=== PATIENT | male | born 1990 | race Caucasian/White ===

== ENCOUNTER 2016-12-16 16:22 | Emergency (ER) | payer OTHER ==
[~2016-12-16] VITALS: Ht 182.9 cm; Wt 64.0 kg
[~2016-12-16 16:22] MED LIST: HYDR-4246 PO; HYDR25CA PO
[2016-12-16 16:25] VITALS: TEMP 99.4; Ht 182.9 cm; Wt 64.0 kg
--- OUTSIDE RECORDS SUMMARY | 2016-12-16 16:26 | XMS REPORT | Continuity of Care Document ---
Author Author [facility] Organization [facility] Address Unknown Phone Unavailable Support Name Relationship Address Phone JEZ MERIDA MD Caregiver [address] [address] Unavailable JUSTINA BARRAZA Next Of Kin [address] [place], [place] [id number] Insurance Providers Guarantor Marck Maurice Address [address] [place] [address] Email DENIED 16 Payer Other A Insurance Policy Number [id number] Subscriber's Name LauraCarlton goldbergshanedamien Relationship 18 Self Group Number [id number] Advance Directives Directive Response Recorded Date/Time Advanced Directives Type None 10/29/16 10:02pm Chief Complaint and Reason for Visit Chief Complaint Upper Extremity Injury Reason for Visit Fracture of fifth metacarpal bone of right hand with malunion Problems Past Problems Medical Problem Onset Date Fracture of fifth metacarpal bone of right hand with malunion Unknown Insect bite Unknown Intoxication by drug Unknown Medications Current Home Medications Medication Dose Units Route Directions Days Qty Instructions Start Date Hydrocodone/Acetaminophen ([place] 5-325 Tablet) 5-325 Tablet 1 Tab Oral Four Times Daily as needed for Pain 30 10/29/16 Hydroxyzine Pamoate (Vistaril) 25 Mg Capsule 1 Cap Oral Four Times Daily 20 Capsule 07/22/16 Social History Social History Problem Response Recorded Date/Time Onset Date Status Chewing Tobacco Status No 10/29/2016 11:00pm Not Applicable Not Applicable Hx Substance Use Y K2 10/29/2016 11:00pm Not Applicable Not Applicable Hx Alcohol Use Yes 10/29/2016 11:00pm Not Applicable Not Applicable Tobacco Usage none 04/10/2016 11:18pm Not Applicable Not Applicable Query Response Start Date Stop Date Smoking Status Current every day smoker Hospital Discharge Instructions No hospital discharge instructions. Plan of Care Discharge Date 10/29/16 11:53pm Disposition 01 DISCHARGED HOME, SELF-CARE Condition at Discharge Improved Instructions/Education Provided Boxer Fracture (ED) Forms Provided Return to Work/School Permit Prescriptions See Medication Section Referrals XIAO JEFFERSON MD Address: [address] [place] [phone] JOSEFA SHEPHERD MD Address: [address] [place] [phone] Additional Instructions/Education Keep splint in place, clean and dry. Call [facility] tomorrow to arrange out patient follow up appointment. Do not take ANY alcohol or drugs while using prescription medications. [place] 5mg 1 every 6 hours for pain as needed. May use Tylenol up to 1000mg instead of norco for less severe pain. Care Plan and Goals Physician Care Plan Problem: Right 5th Metacarpal neck Fx - 2 weeks old with malunion Goal: Follow up with primary care provider Instructions: Take medications and follow care plan as discussed/written Keep splint in place, clean and dry. Call [facility] tomorrow to arrange out patient follow up appointment. Do not take ANY alcohol or drugs while using prescription medications. [place] 5mg 1 every 6 hours for pain as needed. May use Tylenol up to 1000mg instead of norco for less severe pain. Functional Status No functional status results. Allergies, Adverse Reactions, Alerts No known allergies. Immunizations No immunization records. Vital Signs Acute Vital Signs Vital Response Date/Time Temperature (Fahrenheit) 98.4 deg F (96.8 - 99.1) 10/29/2016 10:02pm Temperature (Calculated Celsius) 36.33976 degrees C (36.0 - 37.3) 10/29/2016 10:02pm Pulse Rate (adult) 66 bpm (60 - 100) 10/29/2016 11:53pm Respiratory Rate 12 breaths/min (10 - 20) 10/29/2016 11:53pm O2 Sat by Pulse Oximetry 100 % (90 - 100) 10/29/2016 11:53pm Blood Pressure 108/56 mm Hg 10/29/2016 11:53pm Height (Feet) 6 feet 10/29/2016 10:02pm Height (Inches) 1.00 inches 10/29/2016 10:02pm Weight (Kilograms) 73.900 kg 10/29/2016 10:02pm Body Mass Index (BMI) 21.0 10/29/2016 10:02pm Results No known relevant diagnostic tests, laboratory data and/or discharge summary. Procedures No known history of procedures. Encounters Encounter Location Arrival/Admit Date Discharge/Depart Date Attending Provider Departed Emergency Room [facility] 10/29/16 9:53pm 10/29/16 11: 53pm JEZ MERIDA MD Recent Diagnosis
--- OUTSIDE RECORDS SUMMARY | 2016-12-16 16:27 | XMS REPORT | Continuity of Care Document ---
Author Author [facility] Organization [facility] Address Unknown Phone Unavailable Allergies Active Description Code Type Severity Reaction Onset Reported/Identified Relationship to Patient Clinical Status Yes No Known Allergies No Known Allergies Drug Allergy Unknown N/A 05/15/2014 Medications Problems Procedures Results Test Result Range CBC W/DIFF - 05/15/14 14:15 GRANULOCYTE # 12.5 k/cumm 2.0-9.0 GRANULOCYTE % 77 % 50-75 LYMPHOCYTE # 2.8 k/cumm 1.0-4.0 LYMPHOCYTE % 17 % 20-30 MEAN CELL HGB 28.4 pg 27.0-33.0 MEAN CELL HGB CONCENTRATION 34.6 g/dL 32.0-37.0 MEAN CELL VOLUME 82.1 fl 80.0-100.0 MONOCYTE # 0.9 k/cumm 0.1-1.0 MONOCYTE % 6 % 4-6 RED BLOOD CELL 6.09 m/cumm 4.00-6.00 RED CELL DISTRIBUTION WIDTH 15.0 % 11.0- 15.6 WHITE BLOOD CELL 16.3 k/cumm 5.0-10.0 HEMOGLOBIN 17.3 gm/dL 14.0-18.0 HEMATOCRIT 50.0 % 40.0-54.0 PLATELET COUNT 326 k/cumm 150-450 METABOLIC PANEL, COMPREHN - 05/15/14 14:15 POTASSIUM 3.0 mmol/L 3.5-5.3 EST GFR (MDRD) > 60 mL/min > 59 ANION GAP 15 mmol/L 5-15 EST CrCl (CG) > 60 mL/min > 59 GLUCOSE 137 mg/dL 70-99 CALCIUM 10.0 mg/dL 8.5-10.1 BLOOD UREA NITROGEN 11 mg/dL 7-20 CREATININE 1.3 mg/dL 0.8-1.3 SODIUM 144 mmol/L 135-148 CHLORIDE 102 mmol/L 98-110 AST/SGOT 13 Units/L 10-37 ALT/SGPT 38 Units/L < 66 CARBON DIOXIDE 27 mmol/L 21-32 TOTAL PROTEIN 8.5 gm/dL 6.4-8.2 ALBUMIN 4.3 gm/dL 3.4-5.0 BILI TOTAL 0.6 mg/dL 0.0-1.0 ALKALINE PHOSPHATASE TOTAL 70 IU/L 45- 117 LIPASE - 05/15/14 14:15 LIPASE 112 Units/L 73-393 METABOLIC PANEL, BASIC - 07/28/14 16:10 POTASSIUM 2.8 mmol/L 3.5-5.3 EST GFR (MDRD) > 60 mL/min > 59 ANION GAP 16 mmol/L 5-15 EST CrCl (CG) 46 mL/min > 59 GLUCOSE 125 mg/dL 70-99 CALCIUM 10.3 mg/dL 8.5-10.1 BLOOD UREA NITROGEN 15 mg/dL 7-20 CREATININE 1.2 mg/dL 0.8-1.3 SODIUM 139 mmol/L 135-148 CHLORIDE 100 mmol/L 98-110 CARBON DIOXIDE 23 mmol/L 21-32 Encounters ACCT No. Visit Date/Time Discharge Status Pt. Type Provider Facility Loc./Unit Complaint [id number] 07/28/2014 15:34:00 2013 17:25:00 DIS Emergency Siddharth HILLMAN, [facility] W.EDW [id number] 05/15/2014 14:05:00 2013 15:44:00 DIS Emergency Evangelist HILLMAN, [facility] W.EDW
--- OUTSIDE RECORDS SUMMARY | 2016-12-16 16:43 | XMS REPORT | Continuity of Care Document ---
Author Author [facility] Organization [facility] Address Unknown Phone Unavailable Allergies Active Description [...] Status Pt. Type Provider Facility Loc./Unit Complaint [id number] 07/28/2014 15:34:00 2013 17:25:00 DIS Emergency Siddharth HILLMAN, [facility] W.EDW [id number] 05/15/2014 14:05:00 2013 15:44:00 DIS Emergency Evangelist HILLMAN, [facility] W.EDW
[2016-12-16] MEDS ORDERED: ONDANSETRON 4mg/2ml INJECTION IV ONE (16:45)
[2016-12-16] MEDS ORDERED: NORMAL SALINE 1,000 ML IV ONE (16:45)
--- NOTE | 2016-12-16 16:45 | ERPDOC ---
Departure Disposition Decision Date: Dec 16, 2016 Disposition Decision Time: 17:32 (KATJA SALEH APRN) Disposition: 01 DISCHARGED HOME, SELF-CARE Impression Impression (KATJA SALEH APRN) Impression: Primary Impression: Gastroenteritis Severity: Moderate (KATJA SALEH APRN) Condition: Stable Seen By: Mid-level only (KATJA SALEH APRN) Patient Instructions: Gastroenteritis (ED) Problems/Meds/Labs Reviewed?: Yes Medications reviewed and manag: Yes (KATJA SALEH APRN) Additional Instructions: Use the Zofran as needed for nausea. Take small frequent sips of clear liquids at home to maintain hydration. If you are not improving at all then please return to ER or follow up with your primary care provider in the next 1-2 days. Follow up care ordered?: Yes Mental Status: Alert, Oriented (KATJA SALEH APRN) Scripts Ondansetron (Zofran Odt) 4 Mg Tab.rapdis 4 MG PO Q8HR, #10 TAB 0 Refills Orally disintegrating tablet Prov: KATJA SALEH APRN 12/16/16 HPI - Abdominal Pain General Chief Complaint: Nausea,Vomiting,Diarrhea Stated Complaint: VOMITING/DRY HEAVES Time Seen by Provider: 16:34 Source: patient History/Exam Limitations: no limitations (KATJA SALEH APRN) Time Seen by Provider: 16:34 (MORRIS DELEON MD) HPI - Abdominal Pain Initial Comments He had onset of abdominal cramping, vomiting, and diarrhea this morning. Has had a low grade temp as well. Has not taken anything for this so far today. Feels like he is also having muscle cramping all over. Has vomited several times today. Occurred At: home Onset: Rapid Duration: 4-6 hrs Quality: cramping Location: generalized abdomen Radiation: no radiation Activities at Onset: none Associated Symptoms: fever/chills, nausea/vomiting, DENIES: back pain, chest pain, diaphoresis, fatigue, headache, heartburn, rash, shortness of breath, swelling/mass in abdomen, syncope, weakness Hx of Similar Symptoms: No (KATJA SALEH APRN) Allergies: Coded Allergies: No Known Allergies (Unverified , 12/16/16) Past History Past Medical History Psychological: depression, drug abuse (NOLD,KATJA N TRANSFORMATION ANALYST) Surgical History Denies Surgeries (NOLD,KATJA N TRANSFORMATION ANALYST) Social History Substance Use Type: does not use Alcohol Intake: none (NOLD,KATJA N TRANSFORMATION ANALYST) Review of Systems Constitutional Constitutional: fatigue, fever, weakness, DENIES: chills, dizziness (NOLD, KATJA N TRANSFORMATION ANALYST) Cardiovascular Cardiac: DENIES: chest pain, orthopnea Rhythm/Rate: DENIES: irregular beat, palpitations (NOLD,KATJA N TRANSFORMATION ANALYST) Pulmonary Respiratory: DENIES: cough, dyspnea, sputum, tachypnea (NOLD,KATJA N TRANSFORMATION ANALYST) GI Upper Abdomen: nausea, pain, vomiting Lower Abdomen: diarrhea, pain, DENIES: constipation (NOLD,KATJA N TRANSFORMATION ANALYST) Integumentary Skin: DENIES: rash (NOLD,KATJA N TRANSFORMATION ANALYST) Neurological General: DENIES: headache, numbness, tingling, weakness (NOLD,KATJA N TRANSFORMATION ANALYST) Physical Exam General General Nourishment: well nourished, well developed, appears stated age, no acute distress, adult General Body Habitus: well groomed (NOLD,KATJA N TRANSFORMATION ANALYST) Vitals and Pain First Documented Vital Signs Date Time Temp Pulse Resp B/P Pulse Ox O2 Delivery O2 Flow Rate FiO2 12/16/16 16:25 99.4 103 24 131/84 99 Room Air (MORRIS DELEON MD) Vitals and Pain Weight: Kilograms: 64.000 Height (feet): 6 Height (inches): 0 Triage Pain Scale: (NOLAXMI,KATJA N TRANSFORMATION ANALYST) RN VS reviewed by Provider: Yes (NOPRATTESA N TRANSFORMATION ANALYST) Normal Exams: Neck: Full range of motion, without adenopathy, JVD, bruits or thyromegaly Chest/Resp: Clear all giraldo, with good airflow, and symmetry bilaterally CV: Regular rate and rhythm, without murmur or gallop, Pulses 2+ all extremities, capillary refill, <2 seconds all ext., no pedal edema noted Abdomen: Bowel sounds positive, non-distended, no hepatosplenomegaly, masses or bruits noted Lymphatic: No lymphadenopathy, or lymphedema noted Integumentary: No rashes, hives, or bruising noted Neurologic: Patient is alert, and oriented Psychiatric: Patient exhibits, appropriate attention, emotion and affect (NOLD,KATJA N TRANSFORMATION ANALYST) Abdomen Palpation: FOUND: soft, tender (mild TTP in all quadrants) (SONNYLD,KATJA N TRANSFORMATION ANALYST) Differential Diagnoses Considering: Dehydration, Food Poisoning, Gastroenteritis, Hyponatremia, Hypokalemia, Hypoglycemia, Pancreatitis (NOLD,KATJA N TRANSFORMATION ANALYST) Progress Results/Orders Orders Procedure Category Date Status Time Cbc W/Auto LAB 12/16/16 Complete Diff-Reflex Manual Cmp - Comprehensive LAB 12/16/16 Complete Metabolic Lipase LAB 12/16/16 Complete Iv Lock (Ed Only) EDM 12/16/16 Transmitted 16:40 Normal Saline (Normal PHA 12/16/16 Complete Saline Iv) 16:45 Ondansetron Inj PHA 12/16/16 Complete (Zofran) 16:45 Prochlorperazine PHA 12/16/16 Complete (Compazine) 17:45 (MORRIS DELEON MD) Lab Results Laboratory Tests Test 12/16/16 16:50 White Blood Count 8.6T/MM3 Red Blood Count 5.32M/MM3 Hemoglobin 15.3GM/DL Hematocrit 44.9% Mean Corpuscular Volume 84.4UM3 Mean Corpuscular Hemoglobin 28.8UUG Mean Corpuscular Hemoglobin Concent 34.1GM/DL RDW Standard Deviation 42.6FL Platelet Count 292T/MM3 Mean Platelet Volume 10.3UM3 Immature Granulocyte % (Auto) 0.1% Neutrophils (%) (Auto) 63.5% Lymphocytes (%) (Auto) 29.9% Monocytes (%) (Auto) 5.8% Eosinophils (%) (Auto) 0.6% Basophils (%) (Auto) 0.1% Absolute Immature Granulocyte (auto 0.01T/MM3 Absolute Neutrophils (auto) 5.4T/MM3 Absolute Lymphocytes (auto) 2.6T/MM3 Absolute Monocytes (auto) 0.5T/MM3 Absolute Eosinophils (auto) 0.1T/MM3 Absolute Basophils (auto) 0.0T/MM3 Turbidity < 20 Sodium Level 147MEQ/L Potassium Level 3.8MEQ/L Chloride Level 104MEQ/L Carbon Dioxide Level 26MEQ/L Anion Gap 17MEQ/L Blood Urea Nitrogen 23.0MG/DL Creatinine 1.0MG/DL Glomerular Filtration Rate Calc 89 BUN/Creatinine Ratio 23RATIO Glucose Level 99MG/DL Calculated Osmolality 286MOSM/KG Calcium Level 10.4MG/DL Total Bilirubin 1.20MG/DL Icterus Index < 2 Aspartate Amino Transf (AST/SGOT) 18U/L Alanine Aminotransferase (ALT/SGPT) 21U/L Alkaline Phosphatase 55U/L Total Protein 8.7G/DL Albumin 5.1G/DL Globulin 3.6G/DL Albumin/Globulin Ratio 1.4RATIO Lipase 79U/L Chemistry Specimen Hemolysis < 15 (MORRIS DELEON MD) Medications Current ED Medications Sodium Chloride (Normal Saline IV) 1,000 ml @ 1,000 mls/hr Q1H ONCE IV Last administered on 12/16/16 16:57; Start 12/16/16 at 16:45; Stop 12/16/16 at 17:44 ; Status DC Ondansetron HCl (Zofran) 4 mg O ONCE IV Last administered on 12/16/16 16:57; Start 12/16/16 at 16:45; Stop 12/16/16 at 16:46; Status DC Prochlorperazine Edisylate (Compazine) 10 mg O ONCE IV Last administered on 17:37; Start 12/16/16 at 17:45; Stop 12/16/16 at 17:46; Status DC (MORRIS DELEON MD) Progress Progress CBC, CMP, and lipase today are normal. He does still feel a little nauseated but otherwise is feeling better. Will go ahead and let him go home with a Rx for Zofran today. Follow up with his PCP if not improving. (KATJA SALEH APRN) Progress Patient's history and exam reviewed as well as labs. Agree with care given in ER and follow up plan as outlined (MORRIS DELEON MD) KATJA SALEH APRN Dec 16, 2016 16:45 MORRIS DELEON MD Dec 16, 2016 18:05
[2016-12-16 16:58] LABS: BASOPHILS % (AUTO) 0.1 % (0-2); EOSINOPHILS # (AUTO) 0.1 T/MM3 (0-0.5); EOSINOPHILS % (AUTO) 0.6 % (0-4); HCT - HEMATOCRIT 44.9 % (41-53); HGB - HEMOGLOBIN 15.3 GM/DL (13.5-17.5); IMMATURE GRANULOCYTE # (AUTO) 0.01 T/MM3 (0.00-0.03); IMMATURE GRANULOCYTE % (AUTO) 0.1 % (0.0-0.5); LYMPHOCYTES # (AUTO) 2.6 T/MM3 (1-4.8); LYMPHOCYTES % (AUTO) 29.9 % (23-45); MEAN CORPUSCULAR HGB 28.8 UUG (26-34); MEAN CORPUSCULAR HGB CONC(MCHC 34.1 GM/DL (31-37); MEAN CORPUSCULAR VOLUME 84.4 UM3 (80-100); MEAN PLATELET VOLUME 10.3 UM3 (9.4-12.4); MONOCYTES # (AUTO) 0.5 T/MM3 (0-0.8); MONOCYTES % (AUTO) 5.8 % (0-9.0); NEUTROPHILS #(AUTO)-ABSOLUTE 5.4 T/MM3 (1.8-7.7); NEUTROPHILS % (AUTO) 63.5 % (33-66); RED BLOOD COUNT 5.32 M/MM3 (4.50-5.90); WBC - WHITE BLOOD COUNT 8.6 T/MM3 (4.5-11.0)
[2016-12-16 17:04] LABS: ALBUMIN 5.1 G/DL (3.5-5.0); ALBUMIN/GLOBULIN RATIO 1.4 RATIO (1.1-2.2); ALKALINE PHOSPHATASE 55 U/L (38-126); ALT (SGPT) 21 U/L (21-72); ANION GAP 17 MEQ/L (5-15); AST (SGOT) 18 U/L (17-59); BUN/CREATININE RATIO 23 RATIO (6-26); CALCIUM 10.4 MG/DL (8.4-10.2); CHLORIDE 104 MEQ/L (98-107); CO2 - CARBON DIOXIDE 26 MEQ/L (22-30); GLOMERULAR FILTRATION RATE 89; GLUCOSE 99 MG/DL (75-110); LIPASE 79 U/L (23-300); POTASSIUM 3.8 MEQ/L (3.6-5); SODIUM 147 MEQ/L (134-144); TOTAL PROTEIN 8.7 G/DL (6.3-8.2)
--- NOTE | 2016-12-16 17:33 | NUR ---
DIANA OLSON IN
[2016-12-16] MEDS ORDERED: ONDA4TAB7 PO (17:35)
[2016-12-16] MEDS ORDERED: PROCHLORPERAZINE 10mg/2ml INJECTION IV ONE (17:45)
--- NOTE | 2016-12-16 18:02 | NUR ---
STATUS PT SAYS HE IS FEELING MUCH BETTER. NO LONGER STRESSED & ANXIOUS
[2016-12-16 18:15] VITALS: BP 106/55; PULSE 72; RESP 18; O2SAT 97
--- NOTE | 2016-12-16 18:15 | NUR ---
DISCHARGE PT GIVEN INSTRUCTIONS FOR CONT CARE GASTROENTERITIS W/ RX X1 OF ZOFRAN W/ WORK NOTE, PT VERBALIZED UNDERSTANDING AND SIGNED FORM, PT LEFT ER ALERT, AMBULATORY, VS CHARTED W/ PAIN RELIEVED TO 1/10 W/ RELIEF OF NAUSEA AND NO ACUTE DISTRESS.
== END 2016-12-16 18:15 | disposition home or self-care (01) ==
LOC: ED 16:22
DX: K52.9 Noninfective gastroenteritis and colitis, unspecified (principal)
CPT/HCPCS: 80053; 83690; 85025; 96361; 96374; 96375; 99284; J0780; J2405; J7030

== ENCOUNTER 2016-12-17 14:38 | Emergency (ER) | payer OTHER ==
[~2016-12-17] VITALS: Ht 182.9 cm; Wt 64.5 kg
[~2016-12-17 14:38] MED LIST changes: +ONDA4TAB7 PO
[2016-12-17 14:40] VITALS: TEMP 98.7; Ht 182.9 cm; Wt 64.5 kg
--- OUTSIDE RECORDS SUMMARY | 2016-12-17 14:43 | XMS REPORT | Continuity of Care Document ---
Author Author [facility] Organization [facility] Address Unknown Phone Unavailable Support Name Relationship Address Phone MORRIS DELEON MD Caregiver [address] [place] [address] [place] [address] Unavailable JUSTINA BARRAZA Next Of Kin [address] [place], [place] [phone] Insurance Providers Guarantor Marck Maurice Address [address] [place] [address] Email DENIED 16 Payer Other A Insurance Policy Number [id number] Subscriber's Name Marck Maurice Relationship 18 Self Group Number [id number] Chief Complaint and Reason for Visit Chief Complaint Nausea,Vomiting,Diarrhea Reason for Visit Gastroenteritis Problems Past Problems Medical Problem Onset Date Fracture of fifth metacarpal bone of right hand with malunion Unknown Gastroenteritis Unknown Insect bite Unknown Intoxication by drug Unknown Medications Current Home Medications Medication Dose Units Route Directions Days Qty Instructions Start Date None Daily 12/16/16 Ondansetron (Zofran Odt) 4 Mg Tab.rapdis 4 Mg Oral Q8h @ 0100/0900/1700 10 Tablet Orally disintegrating tablet 12/16/16 Social History Social History Problem Response Recorded Date/Time Onset Date Status Hx Substance Use Y K2 12/16/2016 4:25pm Not Applicable Not Applicable Hx Alcohol Use No 12/16/2016 4:25pm Not Applicable Not Applicable Tobacco Usage none 04/10/2016 11:18pm Not Applicable Not Applicable Query Response Start Date Stop Date Smoking Status Current every day smoker Hospital Discharge Instructions No hospital discharge instructions. Plan of Care Discharge Date 12/16/16 6:15pm Disposition 01 DISCHARGED HOME, SELF-CARE Condition at Discharge Stable Instructions/Education Provided Gastroenteritis (ED) Prescriptions See Medication Section Additional Instructions/Education Use the Zofran as needed for nausea. Take small frequent sips of clear liquids at home to maintain hydration. If you are not improving at all then please return to ER or follow up with your primary care provider in the next 1-2 days. Care Plan and Goals Physician Care Plan Problem:Gastroenteritis Goal: Follow up with primary care provider Instructions: Take medications and follow care plan as discussed/written Functional Status No functional status results. Allergies, Adverse Reactions, Alerts No known allergies. Immunizations Query Response on File Recorded Date/Time Influenza Vaccine Hx NONE 12/16/16 4:25pm Vital Signs Acute Vital Signs Vital Response Date/Time Temperature (Fahrenheit) 99.4 deg F (96.8 - 99.1) 12/16/2016 4:25pm Temperature (Calculated Celsius) 37.08936 degrees C (36.0 - 37.3) 12/16/2016 4:25pm Pulse Rate (adult) 72 bpm (60 - 100) 12/16/2016 6:15pm Respiratory Rate 18 breaths/min (10 - 20) 12/16/2016 6:15pm O2 Sat by Pulse Oximetry 97 % (90 - 100) 12/16/2016 6:15pm Blood Pressure 106/55 mm Hg 12/16/2016 6:15pm Height (Feet) 6 feet 12/16/2016 4:25pm Height (Inches) 0 inches 12/16/2016 4:25pm Weight (Kilograms) 64.000 kg 12/16/2016 4:25pm Body Mass Index (BMI) 19.0 12/16/2016 4:25pm Results Laboratory Results Test Name Result Units Flags Reference Collection Date/Time Result Date/ Time Comments White Blood Count 8.6 T/MM3 4.5-11.0 12/16/2016 4:50pm 12/16/2016 4: 58pm Red Blood Count 5.32 M/MM3 4.50-5.90 12/16/2016 4:50pm 12/16/2016 4: 58pm Hemoglobin 15.3 GM/DL 13.5-17.5 12/16/2016 4:50pm 12/16/2016 4:58pm Hematocrit 44.9 % 41-53 12/16/2016 4:50pm 12/16/2016 4:58pm Mean Corpuscular Volume 84.4 UM3 80-100 12/16/2016 4:50pm 12/16/2016 4: 58pm Mean Corpuscular Hemoglobin 28.8 UUG 26-34 12/16/2016 4:50pm 2016 4:58pm Mean Corpuscular Hemoglobin Concent 34.1 GM/DL 31-37 12/16/2016 4:50pm 12/16/2016 4:58pm RDW Standard Deviation 42.6 FL 36.9-50.2 12/16/2016 4:50pm 12/16/2016 4 :58pm Platelet Count 292 T/MM3 130-400 12/16/2016 4:50pm 12/16/2016 4:58pm Mean Platelet Volume 10.3 UM3 9.4-12.4 12/16/2016 4:50pm 12/16/2016 4: 58pm Neutrophils (%) (Auto) 63.5 % 33-66 12/16/2016 4:50pm 12/16/2016 4: 58pm Lymphocytes (%) (Auto) 29.9 % 23-45 12/16/2016 4:50pm 12/16/2016 4: 58pm Monocytes (%) (Auto) 5.8 % 0-9.0 12/16/2016 4:50pm 12/16/2016 4:58pm Eosinophils (%) (Auto) 0.6 % 0-4 12/16/2016 4:50pm 12/16/2016 4:58pm Basophils (%) (Auto) 0.1 % 0-2 12/16/2016 4:50pm 12/16/2016 4:58pm Immature Granulocyte % (Auto) 0.1 % 0.0-0.5 12/16/2016 4:50pm 2016 4:58pm Absolute Neutrophils (auto) 5.4 T/MM3 1.8-7.7 12/16/2016 4:50pm 2016 4:58pm Absolute Lymphocytes (auto) 2.6 T/MM3 1-4.8 12/16/2016 4:50pm 2016 4:58pm Absolute Monocytes (auto) 0.5 T/MM3 0-0.8 12/16/2016 4:50pm 12/16/2016 4:58pm Absolute Eosinophils (auto) 0.1 T/MM3 0-0.5 12/16/2016 4:50pm 2016 4:58pm Absolute Basophils (auto) 0.0 T/MM3 0-0.2 12/16/2016 4:50pm 12/16/2016 4:58pm Absolute Immature Granulocyte (auto 0.01 T/MM3 0.00-0.03 12/16/2016 4: 50pm 12/16/2016 4:58pm Icterus Index < 2 0-7 12/16/2016 4:50pm 12/16/2016 5:04pm Chemistry Specimen Hemolysis < 15 0-25 12/16/2016 4:50pm 12/16/2016 5 :04pm 0-25: Specimen Exhibited No Hemolysis. Turbidity < 20 0-20 12/16/2016 4:50pm 12/16/2016 5:04pm Sodium Level 147 MEQ/L H 134-144 12/16/2016 4:50pm 12/16/2016 5:04pm Potassium Level 3.8 MEQ/L 3.6-5 12/16/2016 4:50pm 12/16/2016 5:04pm Chloride Level 104 MEQ/L 98-107 12/16/2016 4:50pm 12/16/2016 5:04pm Carbon Dioxide Level 26 MEQ/L 22-30 12/16/2016 4:50pm 12/16/2016 5: 04pm Anion Gap 17 MEQ/L H 5-15 12/16/2016 4:50pm 12/16/2016 5:04pm Blood Urea Nitrogen 23.0 MG/DL H 9-20 12/16/2016 4:50pm 12/16/2016 5: 04pm Creatinine 1.0 MG/DL 0.8-1.5 12/16/2016 4:50pm 12/16/2016 5:04pm BUN/Creatinine Ratio 23 RATIO 6-26 12/16/2016 4:50pm 12/16/2016 5:04pm Glomerular Filtration Rate Calc 89 12/16/2016 4:50pm 12/16/2016 5: 04pm Glucose Level 99 MG/DL 75-110 12/16/2016 4:50pm 12/16/2016 5:04pm Calculated Osmolality 286 MOSM/KG H 261-280 12/16/2016 4:50pm 2016 5:04pm Calcium Level 10.4 MG/DL H 8.4-10.2 12/16/2016 4:50pm 12/16/2016 5:04pm Total Bilirubin 1.20 MG/DL 0.20-1.30 12/16/2016 4:50pm 12/16/2016 5: 04pm Alkaline Phosphatase 55 U/L 38-126 12/16/2016 4:50pm 12/16/2016 5:04pm Total Protein 8.7 G/DL H 6.3-8.2 12/16/2016 4:50pm 12/16/2016 5:04pm Albumin 5.1 G/DL H 3.5-5.0 12/16/2016 4:50pm 12/16/2016 5:04pm Globulin 3.6 G/DL 2.4-3.6 12/16/2016 4:50pm 12/16/2016 5:04pm Albumin/Globulin Ratio 1.4 RATIO 1.1-2.2 12/16/2016 4:50pm 12/16/2016 5 :04pm Aspartate Amino Transf (AST/SGOT) 18 U/L 17-59 12/16/2016 4:50pm 2016 5:04pm Alanine Aminotransferase (ALT/SGPT) 21 U/L 21-72 12/16/2016 4:50pm 5:04pm Lipase 79 U/L 23-300 12/16/2016 4:50pm 12/16/2016 5:04pm Procedures Procedure Status Date Provider(s) Treat metacarpal fracture Completed 10/29/16 JEZ MERIDA MD X-ray exam of hand Completed 10/29/16 Emergency dept visit Completed 10/29/16 Encounters Encounter Location Arrival/Admit Date Discharge/Depart Date Attending Provider Departed Emergency Room [facility] 12/16/16 4:22pm 12/16/16 6: 15pm MORRIS DELEON MD Departed Emergency Room [facility] 10/29/16 9:53pm 10/29/16 11: 53pm JEZ MERIDA MD Recent Diagnosis
--- OUTSIDE RECORDS SUMMARY | 2016-12-17 14:43 | XMS REPORT | Continuity of Care Document ---
Author Author [facility] Organization [facility] Address Unknown Phone Unavailable Allergies Active Description [...] Status Pt. Type Provider Facility Loc./Unit Complaint [id number] 07/28/2014 15:34:00 2013 17:25:00 DIS Emergency Siddharth HILLMAN, [facility] W.EDW [id number] 05/15/2014 14:05:00 2013 15:44:00 DIS Emergency Evangelist HILLMAN, [facility] W.EDW
--- NOTE | 2016-12-17 14:59 | ERPDOC ---
Departure Disposition Decision Date: Dec 17, 2016 Disposition Decision Time: 14:58 Disposition: 01 DISCHARGED HOME, SELF-CARE Impression Impression Impression: Primary Impression: Gastroenteritis Severity: Mild Condition: Improved Seen By: Physician only Referrals: [facility] 2 Days Patient Instructions: Gastroenteritis (ED) Problems/Meds/Labs Reviewed?: Yes Medications reviewed and manag: Yes Follow up care ordered?: Yes Mental Status: Alert, Oriented HPI - Abdominal Pain General Chief Complaint: Nausea,Vomiting,Diarrhea Stated Complaint: DIARRHEA, UPSET STOMACH Time Seen by Provider: 14:43 Source: patient History/Exam Limitations: no limitations HPI - Abdominal Pain Initial Comments 26-year-old male presents to the emergency department with a chief complaint of nausea, vomiting, and diarrhea. Patient noted onset of symptoms 2 days ago. Patient denies any blood in emesis or diarrhea. Patient denies any pain or discomfort other than some diffuse abdominal cramping. Patient was seen in the emergency department one day ago and was given a work note with one day off work. Patient returns today requesting an extension of his work note. Patient declines recommended testing. Patient does not note anything that makes his symptoms any better or any worse. He was at home when the symptoms began. He has been exposed to ill contacts with similar symptoms. Patient denies any other complaints or associated symptoms. Occurred At: home Onset: Gradual Allergies: Coded Allergies: No Known Allergies (Unverified , 12/17/16) Past History Past Medical History Pt denies signifigant PMH Psychological: depression, drug abuse Surgical History Denies Surgeries Family History Family History: Negative Social History Smoking Status: Never smoker Substance Use Type: does not use Alcohol Intake: none Review of Systems Constitutional Constitutional: DENIES: chills, fever Eyes General: DENIES: erythema, exudate Lids/Accessories: DENIES: erythema, swelling Vision: DENIES: acuity, blurring ENMT Ears: DENIES: drainage, erythema Hearing: DENIES: hearing loss Balance: DENIES: ataxia, falling to one side Sinuses: DENIES: congestion, pain Nose: DENIES: nosebleeds, pain Mouth/Throat: DENIES: painful swallowing, sore throat Teeth: DENIES: pain Jaw: DENIES: pain Cardiovascular Cardiac: DENIES: chest pain, dyspnea on exertion Rhythm/Rate: DENIES: irregular beat, palpitations Vascular: DENIES: pedal edema, unilateral swelling Pulmonary Respiratory: DENIES: cough, dyspnea, pleuritic chest pain, sputum GI Upper Abdomen: nausea, vomiting, DENIES: pain Lower Abdomen: diarrhea, DENIES: pain General: DENIES: dysuria, pain Musculoskeletal General: DENIES: joint pain, pain, tenderness Integumentary Skin: DENIES: itching, rash Neurological General: DENIES: headache, numbness, weakness Psychiatric Psychiatric: DENIES: emotional instability, suicidal ideation/attempt Endocrine Endocrine: DENIES: polydipsia, polyphagia Hematologic/Lymphatic Hematologic/Lymphatic: DENIES: frequent nosebleeds, lymphadenopathy Allergic/Immunological Allergic/Immunoligical: DENIES: allergic reactions, hives Physical Exam General General Nourishment: well nourished, well developed, appears stated age, no acute distress, adult General Body Habitus: well groomed Vitals and Pain First Documented Vital Signs Date Time Temp Pulse Resp B/P Pulse Ox O2 Delivery O2 Flow Rate FiO2 12/17/16 14:40 98.7 100 16 137/88 98 Room Air Weight: Kilograms: 64.500 Height (feet): 6 Height (inches): 0 Triage Pain Scale: RN VS reviewed by Provider: Yes Normal Exams: Head: Normocephalic w/o trauma Eyes: Pupils are PERRLA w/ EOMI, No scleral icterus, irritation, or foreign bodies noted ENMT: No facial trauma, nasal exudates, pharyngeal erythema, or exudates are noted Dental: No fractured, loose, or missing teeth noted Neck: Full range of motion, without adenopathy, JVD, bruits or thyromegaly Chest/Resp: Clear all giraldo, with good airflow, and symmetry bilaterally CV: Regular rate and rhythm, without murmur or gallop, Pulses 2+ all extremities, capillary refill, <2 seconds all ext., no pedal edema noted Abdomen: Bowel sounds positive, soft, non-tender, non-distended, no hepatosplenomegaly, masses or bruits noted Lymphatic: No lymphadenopathy, or lymphedema noted Musculoskeletal: No tenderness, or deformity noted, good range of motion, all extremities Integumentary: No rashes, hives, or bruising noted, hair and nails, without abnormality Neurologic: Patient is alert, and oriented, cranial nerves, motor/sensory/ cerebellar, exams w/o gross deficits, to observation Psychiatric: Patient exhibits, appropriate attention, emotion and affect Differential Diagnoses Considering: Food Poisoning, Gastroenteritis, Influenza, Viral Syndrome Progress Progress Progress Patient declines recommended labs/imaging in the emergency Department. Patient declines recommended IV hydration. Patient declines recommended medications. Patient is requesting an extension of his work note. Work note is provided at the patient's request. Patient is discharged home in improved condition. He is to follow up as instructed. Patient is to return to the emergency department if his condition worsens or changes in any manner. Patient is in agreement with the current plan of management. Patient is discharged home in improved condition. He is to follow up as instructed. KAYLEIGH RAMON DO Dec 17, 2016 14:59
[2016-12-17 15:05] VITALS: BP 129/76; PULSE 92; RESP 16; O2SAT 98
== END 2016-12-17 15:06 | disposition home or self-care (01) ==
LOC: ED 14:38
DX: K52.9 Noninfective gastroenteritis and colitis, unspecified (principal)